=== PATIENT | male | born 1955 | race Caucasian/White ===

== ENCOUNTER 2023-10-21 20:40 | Emergency (ER) | payer OTHER ==
[~2023-10-21] VITALS: Ht 170.2 cm; Wt 81.8 kg
[2023-10-21 21:07] VITALS: TEMP 98.3
[2023-10-21] MEDS ORDERED: METF-1211 PO (21:13)
[2023-10-21] MEDS ORDERED: SITA25 PO (21:13)
[2023-10-21 21:44] LABS: BASOPHILS % (AUTO) 0.6 % (0.0-2.0); EOSINOPHILS % (AUTO) 2.4 % (1.0-6.0); HEMATOCRIT 38.8 % (41-53); HEMOGLOBIN 12.7 g/dL (13.5-17.5); LYMPHOCYTES # (AUTO) 2.1 K/uL (1.0-4.8); LYMPHOCYTES % (AUTO) 33.9 % (22.0-44.0); MEAN CORPUSCULAR HEMOGLOBIN 29.4 pg (26.0-34.0); MEAN CORPUSCULAR HGB CONC 32.8 G/dL (31.0-37.0); MEAN CORPUSCULAR VOLUME 90 fL (80-100); MONOCYTES # (AUTO) 0.6 K/uL (0.1-1.0); MONOCYTES % (AUTO) 9.4 % (2.0-9.0); NEUTROPHILS # (AUTO) 3.3 K/uL (1.8-7.7); NEUTROPHILS % (AUTO) 53.7 % (40.0-70.0); PLATELET COUNT (AUTO) 250 K/uL (150-450); RED BLOOD CELL COUNT(AUTO) 4.33 MIL/uL (4.50-5.90); RED CELL DISTRIBUTION WIDTH 13.5 % (11.5-14.5); WHITE BLOOD COUNT (AUTO) 6.1 K/uL (4.5-11.0)
[2023-10-21 21:51] LABS: COVID AG,FIA SOURCE NASAL SWAB
[2023-10-21 21:53] LABS: ANION GAP 8 mmol/L (8-16); CALCIUM, TOTAL 8.7 mg/dL (8.8-10.5); CARBON DIOXIDE 29 mmol/L (22-29); CHLORIDE 96 mmol/L (98-107); CREATININE 1.08 mg/dL (0.60-1.30); GLOMERULAR FILTR. RATE CALC > 60 mL/min (>60); GLUCOSE,RANDOM 346 mg/dL (70-110); POTASSIUM 4.2 mmol/L (3.5-5.1); SODIUM SERUM 133 mmol/L (136-145); UREA NITROGEN, BLOOD 17 mg/dL (7-18)
[2023-10-21 21:56] LABS: APPEARANCE,URINE CLEAR (CLEAR); BILIRUBIN,URINE NEGATIVE (NEGATIVE); COLOR,URINE COLORLESS (YELLOW); GLUCOSE, URINE (UA) >=1000 mg/dL (NEGATIVE); KETONES,URINE NEGATIVE (NEGATIVE); LEUKOCYTE ESTERASE ,URINE NEGATIVE (NEGATIVE); NITRATE,URINE NEGATIVE (NEGATIVE); OCCULT BLOOD,URINE NEGATIVE (NEGATIVE); PH,URINE 6.5 (5.0-8.0); PROTEIN,URINE NEGATIVE (NEGATIVE); UROBILINOGEN,URINE <=1.0 mg/dL (<=1.0)
[2023-10-21 22:12] LABS: INFLUENZA TYPE A NEGATIVE FOR TYPE A (NEGATIVE); INFLUENZA TYPE B NEGATIVE FOR TYPE B (NEGATIVE)
[2023-10-21 22:12] LABS: TROPONIN I-HIGH SENSITIVITY Less Than 4 ng/L (<76)
[2023-10-21 22:13] LABS: SARS-COV2 (COVID) ANTIGEN,FIA Negative (Negative)
[2023-10-21 22:16] LABS: BACTERIA,URINE None Seen /HPF (None Seen); RBC,URINE None Seen /HPF (0-2); SQUAMOUS EPITHELIAL CELL,UR Rare /LPF (None Seen); WBC,URINE None Seen /HPF (0-5); YEAST,URINE Few /HPF (None Seen)
[2023-10-21 22:29] LABS: ALANINE AMINOTRANSFERASE 21 U/L (12-78); ALBUMIN 3.6 g/dL (3.4-5.0); ALKALINE PHOSPHATASE 113 U/L (46-116); ASPARTATE AMINOTRANSFERASE 15 U/L (15-37); BILIRUBIN,TOTAL 0.5 mg/dL (0.1-1.0); CREATINE KINASE, TOTAL ONLY 100 U/L (39-308); TOTAL PROTEIN, SERUM 7.5 g/dL (6.4-8.2)
[2023-10-22] MEDS: SODIUM CHLORIDE 0.9% 1,000 ML IV ONE (00:45)
[2023-10-22] MEDS: INSULIN REGULAR, HUMAN 100 UNITS/ML IVP ONE (00:47)
[2023-10-22 03:30] VITALS: BP 111/65; PULSE 70; RESP 17
[2023-10-22] MEDS ORDERED: NYST30CR9 TP (04:06)
== END 2023-10-22 04:15 | disposition home or self-care (01) ==
LOC: EMS 20:42
DX: E11.65 Type 2 diabetes mellitus with hyperglycemia (principal); L30.8 Other specified dermatitis; I10 Essential (primary) hypertension; Z20.822 Contact with and (suspected) exposure to COVID-19
CPT/HCPCS: 99284; 87426; 80053; 81001; 82550; 82962 ×2; 84484; 85025; 87804; 36415; 93005; 96374; 96361; J1815; J7030